=== PATIENT | female | born 1965 | race Caucasian/White ===

== ENCOUNTER → 2020-11-04 | Outpatient (CLI) | payer MEDICARE, OTHER ==
[~2020-11-04] MED LIST: ALPRAZOLAM0.5 MG PO; DILAUDID 2 MG TA2 MG PO; FOLIC ACID 1 MG1 MG PO; GLUCOPHAGE500 MG PO; HYDROCHLOROTHIA25 MG PO; MEGA BIOTIN10000 MCG PO; NORCO 10-325 T1 EACH PO; PRINIVIL10 MG PO; VISTARIL25 MG PO; ZANTAC150 MG PO
== END ==
LOC: MAMO 10:30
DX: Z12.31 Encounter for screening mammogram for malignant neoplasm of breast (principal)
CPT/HCPCS: 77063; 77067

== ENCOUNTER → 2022-03-13 | Outpatient (CLI) | payer MEDICARE, OTHER | LOC: LAB 14:12 | PROVIDERS: Internal Medicine Rheumatology | DX: Z02.89 Encounter for other administrative examinations (principal); Z79.899 Other long term (current) drug therapy | CPT/HCPCS: 80307 ==